=== PATIENT | male | born 1965 | race Caucasian/White ===

== ENCOUNTER 2023-10-15 06:37 | Day surgery (SDC) | payer OTHER ==
[~2023-10-15] VITALS: Ht 180.3 cm; Wt 116.7 kg
[2023-10-15] MEDS ORDERED: LEVOTHYROXINE112 M18 (06:56)
--- NOTE | 2023-10-15 08:04 | NUR ---
10/15/23 0804 Ana Rand LATE ENTRY: TIME OUT PERFORMED WITH DR APODACA AT BEDSIDE AT APPROX 0728. DR APODACA PERFORMED LIDOCAINE BLOCK IN R WRIST AREA. PATIENT TOLERATED PROCEDURE WELL.
[2023-10-15 08:25] VITALS: BP 122/74
== END 2023-10-15 09:03 | disposition home or self-care (01) ==
LOC: ORSCSDS 06:37
PROVIDERS: Orthopaedic Surgery
PROC: 01N54ZZ Release Median Nerve, Percutaneous Endoscopic Approach (ICD-10-PCS; principal; 2023-10-15 08:00)
DX: G56.03 Carpal tunnel syndrome, bilateral upper limbs (principal); E07.9 Disorder of thyroid, unspecified; Z68.36 Body mass index [BMI] 36.0-36.9, adult
CPT/HCPCS: J2250; J7120